=== PATIENT | female | born 1970 | race Caucasian/White ===

== ENCOUNTER 2018-05-22 21:14 | Emergency (ER) | payer BC ==
[2018-05-22] MEDS ORDERED: methylPREDNISolone Sodium Succinate 125 MG/2 ML SDV IVPUSH ONE (21:44)
[2018-05-22] MEDS ORDERED: Loratadine 10 MG Tab PO ONE (23:25)
[2018-05-22] MEDS ORDERED: Dexamethasone 4 MG/ML 5 ML MDV IV ONE (23:26)
[2018-05-22] MEDS ORDERED: Dexamethasone 10 MG/ML SDV IVPUSH ONE (23:26)
[2018-05-22] MEDS ORDERED: Famotidine 20 MG Tab PO ONE (23:27)
[2018-05-22] MEDS ORDERED: hydrOXYzine HCl 25 MG Tab PO ONE (23:27)
--- NOTE | 2018-05-22 23:48 | EDM.PDOC ---
ED HPI GENERAL MEDICAL PROBLEM - General Chief Complaint: Respiratory Problem Stated Complaint: POSS ALLERGIC REACTION Time Seen by Provider: 05/22/18 21:40 Source of Information: Reports: Patient - History of Present Illness INITIAL COMMENTS - FREE TEXT/NARRATIVE: see dictated documentation Onset: Today - Related Data Allergies Allergy/AdvReac Type Severity Reaction Status Date / Time erythromycin base Allergy Cannot Verified 05/22/18 21:25 [Erythromycin Base] Remember Home Meds: Home Meds Clomera. 0.035 mg TRDERM Q7D 03/27/14 [History] Past Medical History Oncologic (Cancer) History: Reports: Breast - Past Surgical History Oncologic Surgical History: Reports: Mastectomy Other Oncologic Surgeries/Procedures: Bilat mastectomy Social & Family History - Tobacco Use Smoking Status *Q: Never Smoker - Caffeine Use Caffeine Use: Reports: Coffee - Recreational Drug Use Recreational Drug Use: No ED ROS GENERAL - Review of Systems Review Of Systems: See Below ED EXAM, GENERAL - Physical Exam Exam: See Below Course - Vital Signs Last Recorded V/S: Last Vital Signs Temp 36.4 C 05/22/18 21:20 Pulse 130 H 05/22/18 21:20 Resp 16 05/22/18 21:20 BP 120/89 05/22/18 21:20 Pulse Ox 95 05/22/18 21:20 - Orders/Labs/Meds Meds: Medications Discontinued Medications Generic Name Dose Route Start Last Admin Trade Name Massimo PRN Reason Stop Dose Admin Dexamethasone 5 mg 05/22/18 23:26 05/22/18 23:32 Dexamethasone IV 05/22/18 23:27 Not Given ONETIME ONE Dexamethasone 5 mg 05/22/18 23:26 05/22/18 23:32 Dexamethasone IVPUSH 05/22/18 23:27 5 mg ONETIME ONE Administration Famotidine 20 mg 05/22/18 23:27 05/22/18 23:32 Pepcid PO 05/22/18 23:28 20 mg ONETIME ONE Administration Hydroxyzine HCl 25 mg 05/22/18 23:27 05/22/18 23:37 Atarax PO 05/22/18 23:28 25 mg ONETIME ONE Administration Loratadine 10 mg 05/22/18 23:25 05/22/18 23:32 Claritin PO 05/22/18 23:26 10 mg ONETIME ONE Administration Methylprednisolone Sodium Succinate 125 mg 05/22/18 21:44 05/22/18 21:50 Solu-Medrol IVPUSH 05/22/18 21:45 125 mg ONETIME ONE Administration Departure - Departure Time of Disposition: 23:44 Disposition: Home, Self-Care 01 Condition: Fair Clinical Impression: Urticaria - Discharge Information *PRESCRIPTION DRUG MONITORING PROGRAM REVIEWED*: Not Applicable *COPY OF PRESCRIPTION DRUG MONITORING REPORT IN PATIENT ILSA: Not Applicable Referrals: PCP,Not In Area [Primary Care Provider] - Additional Instructions: Continue taking Benadryl. Zyrtec 10 mg (over the counter) daily. Followup with primary care provider if still having symptoms or not improved by tomorrow. Avoid any skin creams, new detergents, fabric softeners, etc, as discussed.
--- NOTE | 2018-05-23 03:28 | ER ---
REASON FOR EMERGENCY ROOM VISIT: Hives and itching. HISTORY OF PRESENT ILLNESS: This pleasant 48-year-old woman comes in with a 24-hour history of diffuse itching and the development of hives. She states that over the last weekend, on Sunday and Sunday, she and her stayed in a hotel, which she describes as "dirty," this was a local [employer] hotel. Her has not had any skin problems or itching issues, but she is concerned that she may have been exposed to bedbugs. Last evening, around 10:30, she developed itching and felt like she had some itching involving her airway and around her lips, but the airway itching sensation resolved spontaneously. In the interim, she has developed raised welts scattered on many areas of her body, which will be described in the physical examination below. These areas have produced intense itching. She has not had any arthralgias, fever, urinary symptoms, diarrhea, or wheezing. She has no history of allergies except to erythromycin base. She felt a sense of air hunger and panic last night on a couple of occasions, but today her main overarching symptom has been this intense, unrelenting itching that she has experienced. PAST MEDICAL HISTORY: Significant for: 1. Urinary tract infection. 2. History of headaches. CURRENT MEDICATIONS: Reviewed, see EMR. REVIEW OF SYSTEMS: Pertinent positives and negatives as listed in the HPI. PHYSICAL EXAMINATION: GENERAL: She appears somewhat anxious, but in no acute distress. Otherwise, she is afebrile. VITAL SIGNS: Heart rate is 130, blood pressure 120/89, respiratory rate 16, O2 saturations 95%. HEENT: She has a few small urticarial lesions along her hairline and a slight area of swelling in her right upper lip. Eyes without any chemosis or conjunctival injection. Ears, TMs and external canals are normal. NECK: She has some redness from itching and excoriations on her posterior neck, but no urticarial lesions. CHEST: Clear to auscultation with no wheezes, rhonchi, or rales and good airway exchange. CARDIAC: Regular rate without murmur. ABDOMEN: Soft and nontender. No masses. No guarding, rebound, or organomegaly. EXTREMITIES: No edema. No deformities. Normal pulses. SKIN: She has raised, confluent, circumscribed, erythematous plaques that are typical of an urticarial type eruption. These involve the right axilla, an isolated area over her right upper lip, her right lateral hip area, her left lateral hip area, both posterior thighs, and her knees anteriorly. IMPRESSION: Urticaria, uncertain etiology. Possibilities include an allergic reaction to a number of different kinds of allergens including laundry detergents, fabric softeners, plant allergens, etc. She does not give anything in her history that would narrow the possible causes down. This may be an idiopathic situation if we never find out the cause for. The fact that her has had no itching or skin eruptions at all, it goes against the possibility of bedbugs. FURTHER EMERGENCY ROOM COURSE: An IV was started, is on heparin lock. She was given 1 dose of Solu-Medrol ( 125 mg). Later on, she was given 5 mg of dexamethasone. She also was given loratadine 1 tablet x1. She has been taking Benadryl, so we did not repeat this. She was given ranitidine as well p.o. Over time, her itching decreased significantly, but was still persistent. She was in the emergency room for approximately 3 hours time. Because of the long-acting effect of the dexamethasone, I elected not to send her home with a steroid burst. She was directed to continue the Benadryl and advised to take the Zyrtec one 10 mg tablet p.o. daily as well as ranitidine. Apparently, they had gotten some new fabric conditioner, and I advised them to steer clear of that, on the outside chance that might be an offending agent. If her symptoms do not improve significantly overnight or if they persist or worsen any way, she should be seen again tomorrow, but the effects of the dexamethasone should last for at least 24 to 36 hours, at which time, I would think her urticaria will be resolved. Indeed, when I reinspected a couple of these areas approximately 1-1/2 hours after she received Solu- Medrol, the urticarial areas had significantly decreased on visual inspection. Her itching was much less as well, but she still had some. All questions were answered. She understands and agrees with this plan. JOSE /[id number] JEFFREY
== END 2018-05-23 | disposition home or self-care (01) ==
LOC: JD.ED 21:14
DX: L50.9 Urticaria, unspecified (principal); Z88.1 Allergy status to other antibiotic agents
CPT/HCPCS: 96374; 96375; 99283; A9270; J1100; J2930